=== PATIENT | male | born 1955 | race Caucasian/White ===

== ENCOUNTER → 2018-02-17 17:40 | Outpatient (CLI) | payer BC, SELFPAY ==
--- NOTE | 2018-02-17 18:02 | MRI_ITS ---
STUDY: MRI RIGHT SHOULDER REASON FOR EXAM: Male, 62 years old. Pain and decreased range of motion with no known injury. TECHNIQUE: Standardized fat and water weighted pulse sequences were obtained in all 3 orthogonal planes. COMPARISON: None. FINDINGS: Normal supraspinatus tendon. There is increased signal along the distal fibers of the infraspinatus tendon as seen on series 5 image 7 consistent with small microtears at the attachment. Normal subscapularis tendon. Normal teres minor tendon. Normal supraspinatus muscle. Normal infraspinatus muscle. Normal subscapularis muscle. Normal teres minor muscle. There is mild osteoarthritis of the glenohumeral articulation. Normal humeral head and visualized proximal humerus. Mild increased signal within the superior labrum is present consistent with degenerative changes without focal tear. Normal intracapsular long biceps tendon. Normal capsulo- ligamentous complex. Normal rotator interval. There is moderate osteoarthritis of the acromioclavicular articulations. There is a Type II morphology (curved), with a neutral orientation. There is no subacromial-subdeltoid bursal fluid. Normal visualized coracohumeral and coracoacromial ligaments. Normal quadrilateral space. Normal axillary space. Normal deltoid muscle. Normal trapezius muscle. MRI/Upper Ext Joint Only(Routine) IMPRESSION: 1. Distal microtears of the infraspinatus tendon with no significant tendinopathy or thickening. 2. AC joint arthropathy with no significant underlying subacromial/deltoid bursitis. 3. Moderate glenohumeral joint arthrosis and mild degenerative changes of the superior labrum without evidence of focal tear. Electronically Signed: Aubrey Renee DO at 23:32 EDT , Service support ,
== END ==
DX: M19.011 Primary osteoarthritis, right shoulder (principal); G89.29 Other chronic pain
CPT/HCPCS: 73221